=== PATIENT | female | born 1940 | race Caucasian/White ===

== ENCOUNTER 2020-12-22 07:46 | Outpatient (REF) | payer BC, SELFPAY ==
[2020-12-22 11:42] LABS: Hematocrit 39.7 % (37-47); Hemoglobin 12.4 g/dl (12.0-16.0); Mean Corpuscular HGB Conc 31.2 g/dl (31.0-35.0); Mean Corpuscular Hemoglobin 29.4 pg (27.0-33.0); Mean Corpuscular Volume 94.1 fL (80-98); Mean Platelet Volume 11.7 fL (9.4-12.3); Platelet Count 211 X10*3/uL (160-400); Red Blood Count 4.22 X10*6/uL (4.20-5.50); Red Cell Distribution Width 13.2 % (11.0-16.0); White Blood Count 3.5 X10*3/uL (4.8-10.8)
[2020-12-22 14:30] LABS: Ferritin 10 ng/mL (10-250); Vitamin D 25-OH Total 30.9 ng/mL (>30)
[2020-12-22 14:36] LABS: Alanine Aminotransferase 13 U/L (0-31); Albumin Level 4.1 g/dL (3.5-5.0); Alkaline Phosphatase 66 U/L (39-117); Anion Gap 12 (12-20); Aspartate Amino Transferase 19 U/L (5-31); Bilirubin Total 0.5 mg/dL (0.0-1.0); Blood Urea Nitrogen 17 mg/dL (9-16); Calcium 9.3 mg/dL (8.4-10.2); Carbon Dioxide 29 mmol/L (22-29); Chloride 105 mmol/L (96-108); Cholesterol 230 mg/dL; Estimated Glomerular Filt Rate > 60; Glucose Fasting 106 mg/dL (60-99); HDL Cholesterol 64 mg/dL; Iron 33 mcg/dL (30-160); LDL Cholesterol Calculated 145 mg/dl; Magnesium 2.1 mg/dL (1.6-2.6); Percent Iron Saturation 7 % (15-50); Potassium 5.3 mmol/L (3.3-5.1); Sodium 141 mmol/L (135-145); Total Iron Binding Capacity 441 mcg/dL (228-428); Total Protein 6.6 g/dL (6.5-8.0); Triglycerides 109 mg/dL; Unsaturated Iron Binding 408 ug/dL
== END 2020-12-22 07:47 | disposition home or self-care (01) ==
LOC: HO.MANLDS 07:46
PROVIDERS: PCP Internal Medicine; Visit Provider Internal Medicine
DX: E78.00 Pure hypercholesterolemia, unspecified (principal); D50.9 Iron deficiency anemia, unspecified; G47.62 Sleep related leg cramps
CPT/HCPCS: 36415; 80053; 80061; 82306; 82728; 83540; 83735; 85027

== ENCOUNTER 2022-11-01 09:53 | Outpatient (REF) | payer BC, SELFPAY ==
[2022-11-01 13:57] LABS: Hematocrit 40.5 % (37.0-47.0); Hemoglobin 12.3 g/dl (12.0-16.0); Mean Corpuscular HGB Conc 30.4 g/dl (31.0-35.0); Mean Corpuscular Hemoglobin 26.6 pg (27.0-33.0); Mean Corpuscular Volume 87.7 fL (80.0-98.0); Mean Platelet Volume 11.3 fL (9.4-12.3); Platelet Count 280 X10*3/uL (160-400); Red Blood Count 4.62 X10*6/uL (4.20-5.50); Red Cell Distribution Width 15.5 % (11.0-16.0); WBC ABN SCTR FOR CBC 1
[2022-11-01 13:58] LABS: White Blood Count 3.3 X10*3/uL (4.8-10.8)
[2022-11-01 14:29] LABS: Alanine Aminotransferase 16 U/L (0-31); Albumin Level 4.3 g/dL (3.5-5.0); Alkaline Phosphatase 76 U/L (39-117); Anion Gap 16 (12-20); Aspartate Amino Transferase 21 U/L (5-31); Bilirubin Total 1.1 mg/dL (0.0-1.0); Blood Urea Nitrogen 11 mg/dL (9-16); Calcium 9.9 mg/dL (8.4-10.2); Carbon Dioxide 24 mmol/L (22-29); Chloride 103 mmol/L (96-108); Estimated Glomerular Filt Rate > 60; Glucose Random 115 mg/dL (60-115); Iron 53 mcg/dL (30-160); Percent Iron Saturation 13 % (15-50); Potassium 4.7 mmol/L (3.3-5.1); Sodium 138 mmol/L (135-145); Total Iron Binding Capacity 396 mcg/dL (228-428); Total Protein 7.5 g/dL (6.5-8.0); Unsaturated Iron Binding 343 ug/dL
[2022-11-01 14:35] LABS: Vitamin B12 > 2000 pg/mL (200-900)
[2022-11-01 14:47] LABS: Ferritin 8 ng/mL (10-250); Thyroid Stimulating Hormone 1.36 uIU/mL (0.32-4.0); Vitamin D 25-OH Total 26.3 ng/mL (>30)
[2022-11-01 15:57] LABS: Band Neutrophils Percent 2 % (3-5); Basophils Percent Manual 1 % (0-2); Eosinophils Absolute Manual 0.1 X10*3/uL (0.0-0.4); Eosinophils Percent Manual 3 % (0-4); Lymphocytes Absolute Manual 1.1 X10*3/uL (1.2-4.9); Lymphocytes Percent Manual 34 % (20-40); Monocytes Absolute Manual 0.2 X10*3/uL (0.1-1.2); Monocytes Percent Manual 5 % (2-11); Neutrophils Absolute Manual 1.9 X10*3/uL (2.0-8.3); Neutrophils Percent Manual 55 % (45-73)
[2022-11-01 15:59] LABS: Burr Cells 2+ (3-5) /OIF; RBC Morphology NOTED; Target Cells 1+ (5-14) /OIF
[2022-11-01 16:00] LABS: WBC Morphology Comment DYSMORPHIC
[2022-11-01 19:08] LABS: Large Platelet PRESENT; Platelet Estimate NORMAL (NORMAL); Platelet Morphology Comment NOTED
== END 2022-11-01 09:54 | disposition home or self-care (01) ==
LOC: HO.MANLDS 09:53
PROVIDERS: Visit Provider Internal Medicine
DX: Z00.00 Encounter for general adult medical examination without abnormal findings (principal); Z20.2 Contact with and (suspected) exposure to infections with a predominantly sexual mode of transmission
CPT/HCPCS: 36415; 80053; 82306; 82607; 82728; 83540; 84443; 85007; 85027